=== PATIENT | male | born 2005 | race Caucasian/White ===

== ENCOUNTER 2024-03-18 16:21 | Outpatient (CLI) | payer OTHER, SELFPAY ==
--- NOTE | ~2024-03-18 | XR_ITS ---
EXAMINATION: XR foot LT min 3V DATE: 03/18/2024 16:40 INDICATION: Unspecified injury of left foot, initial encounter. Left foot pain. TECHNIQUE: 4 views of left foot were obtained. COMPARISON: None. FINDINGS: Bone alignment is normal. No fracture. There is mild midfoot osteoarthritis. IMPRESSION: 1. Mild midfoot osteoarthritis. Reviewed, dictated and finalized at location E.
--- NOTE | ~2024-03-18 | XR_ITS ---
EXAMINATION: XR ankle LT min 3V DATE: 03/18/2024 16:40 INDICATION: Unspecified injury of left foot, initial encounter. TECHNIQUE: 4 views of left ankle were obtained. COMPARISON: None. FINDINGS: Bone alignment is normal. No fracture. There is mild midfoot osteoarthritis. IMPRESSION: 1. Mild midfoot osteoarthritis. Reviewed, dictated and finalized at location E.
== END 2024-03-18 16:22 ==
LOC: MICIMG 16:24
PROVIDERS: PCP Pediatrics; Visit Provider Pediatrics
DX: S99.922A Unspecified injury of left foot, initial encounter (principal); X58.XXXA Exposure to other specified factors, initial encounter; M19.072 Primary osteoarthritis, left ankle and foot
CPT/HCPCS: 73610; 73630

== ENCOUNTER 2024-06-14 08:23 | Outpatient (CLI) | payer OTHER, SELFPAY ==
--- NOTE | ~2024-06-14 | US_ITS ---
Limited Abdominal Sonogram: Real-time sonographic imaging of the right upper quadrant was performed. Clinical History: Elevated bilirubin Findings: The liver appears normal with no evidence of mass lesion or bile duct dilatation. Main por saeid vein demonstrates normal direction of flow. The gallbladder is well distended, and appears normal with no evidence of gallstone or wall thickening. The common bile duct measures 3 mm. The visualize d pancreas, aorta, and IVC are unremarkable. Impression: No significant abnormality seen. Reviewed, dictated and finalized at location . Impression: No significant abnormality seen.
== END 2024-06-14 08:24 ==
LOC: GOSHIMG 08:24
PROVIDERS: PCP Pediatrics; Visit Provider Nurse Practitioner
DX: E80.6 Other disorders of bilirubin metabolism (principal)
CPT/HCPCS: 76705